=== PATIENT | female | born 1970 | race Caucasian/White ===

== ENCOUNTER 2020-03-15 08:02 | Outpatient (CLI) | payer BC, SELFPAY ==
--- NOTE | 2020-03-15 08:00 | MR_ITS ---
WS: [id number] MRI CERVICAL SPINE NONCONTRAST TECHNIQUE: Sagittal T1, T2 and STIR imaging. Axial T2, gradient, and fiesta imaging. CLINICAL INFORMATION: M48.02 Spinal stenosis, cervical region COMPARISON: June 23, 2018 FINDINGS: Normal cervical alignment. No high-grade central canal stenosis. Cord signal is normal. Small disc pr otrusions at C4-C5 C5-C6 and C6-C7. C2-C3: Normal. C3-C4: Mild osteophytic ridging. Mild left and no significant right foraminal narrowing. Spinal canal is patent. C4-C5: Mild disc osteophyte complex with endplate ridging. Mild left and no significant right foramin al narrowing. Mild central canal stenosis. Mild facet arthropathy. C5-C6: Tiny central disc osteophyte protrusion. Mild central canal stenosis. Mild facet arthropathy. Moderate left and mild right bony foraminal narrowing. Mild facet arthropathy. C6-C7: Central left pericentral disc osteophyte protrusion. Slight contact of the cervical cord. Mild central canal stenosis. Mild bilateral foraminal narrowing left greater than right. C7-T1: Normal. Visualized brain stem structures: Normal. Prevertebral soft tissues: Normal. Small retention cyst sphenoid sinus. MR/MR cervical spin wo con* [id number] IMPRESSION: 1. Normal cervical alignment. No high-grade central canal narrowing. Cord sign al is normal. 2. Mild central canal stenosis C4-C6 similar in appearance to 2019. 3. Central left pericentral disc osteophyte protrusion C6-C7 with mild central canal stenosis slightly progressed since 2019. Slight contact of the left vent ral cervical cord. Mild left foraminal narrowing at this level. 4. Small left pericentral disc osteophyte complex C4-5 with mild to moderate l eft foraminal narrowing. 5. Tiny central protrusion at C5-C6 with mild central canal stenosis and moder ate left bony foraminal narrowing.
== END 2020-03-15 08:03 | disposition home or self-care (01) ==
LOC: RADSHAW 08:05
PROVIDERS: Visit Provider Orthopaedic Surgery
DX: M48.02 Spinal stenosis, cervical region (principal); G99.2 Myelopathy in diseases classified elsewhere; M25.78 Osteophyte, vertebrae; M50.222 Other cervical disc displacement at C5-C6 level
CPT/HCPCS: 72141

== ENCOUNTER → 2020-03-16 13:50 | Outpatient (BNVA) | payer BC, SELFPAY | PROVIDERS: Visit Provider Orthopaedic Surgery | DX: Z11.59 Encounter for screening for other viral diseases (principal); M48.02 Spinal stenosis, cervical region; G99.2 Myelopathy in diseases classified elsewhere | CPT/HCPCS: 87635 ==

== ENCOUNTER → 2020-03-21 14:12 | Outpatient (BNVA) | payer BC, SELFPAY | PROVIDERS: Visit Provider Orthopaedic Surgery | DX: Z20.828 Contact with and (suspected) exposure to other viral communicable diseases (principal) | CPT/HCPCS: 87635 ==

== ENCOUNTER 2020-03-24 15:30 | Inpatient (IN) | payer BC, SELFPAY ==
[2020-03-16 11:48] VITALS: BMI 22.3
--- NOTE | 2020-03-16 12:06 | ANES.PREANE2 ---
Pre-Anesthetic Assessment Pre-Anesthetic Assessment: Height/Weight: Height 1.55 m Weight 53.524 kg Preop Diagnosis: cervical stenosis Proposed Procedure: Operation Date: 03/21/20 14:30 Proposed Procedures p Anterior Cervical Discectomy&Fusion C5-C6, C6-C7 12835 M48.02 G99.2(Not Applicable) - Juliano Dickinson DO Familial anesthetic complications: NOne Social: Social History: Tobacco Exam: Pre-Anes Outpt Exam: alert, oriented x 3, clear to auscultation bilaterally and regular rate & rhythm Airway: Cervical ROM: Other (limited extension d/t pain) MP: 1 Dentition: Other (teeth pulled) CV/HEM: Comments: macrocytosis - takes folate and b12 Anesthetic Plan: ASA status: 1 Anesthesia: General Risk of > 500 ml blood loss (7ml/kg in children): No PFSH Anesthesia PFSH: Social History Smoking and tobacco status: current every day smoker cigarettes Packs smoked per day: 0.05 Second hand smoke exposure: Yes Alcohol intake: current Alcohol intake frequency: holidays/special occasions only Data Anesthesia Cardiac Studies: No Data to Display
[2020-03-24] VITALS (16 sets, daily range): BP systolic 93–121; BP diastolic 58–81; PULSE 73–99; RESP 10–20; TEMP 36.1–36.9; O2SAT 92–100
--- NOTE | 2020-03-24 | XR_ITS ---
WS: [id number] Cervical spine, AP and lateral views C-arm fluoroscopy in the OR, 03/24/2020 Clinical Data: ACDF Comparison: None. Findings: There is an anterior cervical disc fusion of C5-C7. Artificial disks through C7. Are placed at C5-C6 and C6-C7. XR/XR cervical spine 3V* [id number] Impression: Anterior cervical disc fusion C5-C7.
--- NOTE | 2020-03-24 | SCC_ITS ---
Procedure Done: 1. Radical anterior cervical discectomy C5-6 with removal of posterior osteophytes foraminotomies and decompression of spinal canal. 2. Radical anterior cervical discectomy C6-7 with removal of posterior osteophytes foraminotomies and decompression of spinal canal 3. is anterior cervical fusion C5-6. 4. anterior cervical fusion C6-7. 5. utilization of allograft for purposes of spinal fusion. 6. is application of anterior cervical locking plate C5-C7. 30.1 seconds of fluoroscopic guidance, for a cumulative dose of 3.98 mGy, was provided to Dr. Dickinson by the radiology department. C-arm images of the cervical spine were saved for the patient's permanent record. HUGOD
[2020-03-24] MEDS: gabapentin 300 mg Capsule PO (08:25)
[2020-03-24] MEDS: sodium chloride 0.9% 1,000 ML 30 ML IV (08:25)
--- NOTE | 2020-03-24 08:43 | W.PM.OPSUD ---
Surgery/Procedure H&P Update DATE OF PROCEDURE: March 24, 2020 DATE H&P PERFORMED: 03/03/20 H&P UPDATE INFORMATION: I have reviewed H&P completed within last 30 days, I have examined patient prior to procedure and No changes to prior documentation PREOP DIAGNOSIS: cervical stenosis PLANNED PROCEDURE: Operation Date: 03/24/20 09:00 Proposed Procedures p Anterior Cervical Discectomy&Fusion C5-C6, C6-C7 08072 05685 [id number] 05572 55746 56318 M48.02 G99.2(Not Applicable) - Juliano Dickinson DO
--- NOTE | 2020-03-24 08:43 | W.PM.OPSUD ---
Surgery/Procedure H&P Update DATE OF PROCEDURE: March 24, 2020 DATE H&P PERFORMED: 03/03/20 H&P UPDATE INFORMATION: I have reviewed H&P completed within last 30 days, I have examined patient prior to procedure and No changes to prior documentation PREOP DIAGNOSIS: cervical stenosis PLANNED PROCEDURE: Operation Date: 03/24/20 09:00 Proposed Procedures p Anterior Cervical Discectomy&Fusion C5-C6, C6-C7 60986 72183 24991 34050 93753 01811 M48.02 G99.2(Not Applicable) - Juliano Dickinson DO
--- NOTE | 2020-03-24 08:44 | P.ANESASSM_ITS ---
Pre-Anesthetic Assessment Pre-Anesthetic Assessment: Height/Weight: Height 1.55 m Weight 53.524 kg Temp Pulse Resp BP Pulse Ox 98.4 F 99 18 116/81 98 03/24/20 07:54 03/24/20 07:54 03/24/20 07:54 03/24/20 07:54 03/24/20 07:54 Preop Diagnosis: cervical stenosis Proposed Procedure: Operation Date: 03/24/20 09:00 Proposed Procedures p Anterior Cervical Discectomy&Fusion C5-C6, C6-C7 66291 63683 75961 28636 08764 15503 M48.02 G99.2(Not Applicable) - Juliano Dickinson DO Familial anesthetic complications: None Was Beta Ivy taken within 24 hours: N/A Last intake: Intake Last Liquid Date 03/23/20 Last Liquid Time 23:00 Last Solid Date 03/23/20 Last Solid Time 22:00 Social: Social History: Tobacco and No alcohol Exam: Pre-Anes Outpt Exam: alert, oriented x 3, clear to auscultation bilaterally and regular rate & rhythm Airway: Cervical ROM: WNL MP: 2 Dentition: Full Anesthetic Plan: ASA status: 1 Anesthesia: General Risk of > 500 ml blo od loss (7ml/kg in children): No Meds/Allergies Current Medications: Current Medications Generic Name Dose Route Start Last Admin Trade Name Freq PRN Reason Stop Dose Admin Sodium Chloride 1,000 mls @ 30 ml s/hr 03/24/20 08:00 03/24/20 08:25 Sodium Chloride 0.9% IV 03/25/20 07:59 30 mls/hr .Q24H ALISA Administration PFSH Anesthesia PFSH: Social History Smoking and tobacco status: current every day smoker cigarettes Packs smoked per day: 0.05 Second hand smoke exposure: Yes Alcohol intake: current Alcohol intake frequency: holidays/special occasions only Data Anesthesia Cardiac Studies: No Data to Display
--- NOTE | 2020-03-24 10:11 | SUR.OPER ---
Family Notified Of Patient's Status Via Phone.
--- NOTE | 2020-03-24 11:55 | SUR.PHASEI ---
1150 PATIENT TO PACU FROM OR. RR EVEN AND UNLABORED. SPO2 100% ON SIMPLE MASK AT 8L. NECK BRACE IN PLACE.
[2020-03-24] MEDS: fentaNYL 50 mcg/mL INJ 2mL IVP ×2 (12:12→12:21)
--- NOTE | 2020-03-24 12:14 | P.OP_ITS ---
Operative Report Date of procedure: March 24, 2020 Pre-op Diagnosis: cervical stenosis with radiculopathy Post-op diagnosis: same Procedure Done: 1. Radical anterior cervical discectomy C5-6 with removal of posterior osteophytes foraminotomies and decompression of spinal canal. 2. Radical anterior cervical discectomy C6-7 with removal of posterior osteophytes foraminotomies and decompression of spinal canal 3. is anterior cervical fusion C5-6. 4. anterior cervical fusion C6-7. 5. utilization of allograft for purposes of spinal fusion. 6. is application of anterior cervical locking plate C5-C7. Implants: Marilee Anesthesia: General Estimated blood loss (mL): 25 Condition: stable Disposition: PACU Procedure: Patient was brought to the operative suite placed in the supine position all areas of impingement were well-padded patient had neuro monitoring attached of note no issues came up with neuro monitoring patient had no deficits. Patient was then prepped and draped in normal sterile fashion. Skin surgeon made over the C5-6 level confirmed under C arm guidance. These platysma's was split retractors placed and blunt dissection was made down to the anterior spine the interlocked internal ligament was identified retractors placed spinal needle was used to confirm the C5-6 disc is good from using the C arm retractors were then placed [place] pins were placed at C5 and C6. This was distracted. The discectomy was performed using curettes [place] taken all her down posterior longitudinal ligament was taken down dura had good texture good pulse the foramen were opened up bilaterally using the #2 [place] rongeur osteophytes were taken down along with the uncinate process bilaterally curette was able to pass freely through the foramen bilaterally then a [place] cage was placed and packed with osteoamp size 7 cage was placed. Next Attention was brought to the C6-7 level pin was removed from C5 and placed in the C7. C6-7 to space was distracted discectomy performed using curette and pituitary and [place] rongeurs again taken back to the posterior longitudinal ligament the foramen and uncinate process were opened up with the nerves were felt to be completely free dura good repair the again a size 7 cage from [place]ilee was inserted packed with osteoamp and then a [place] cage was placed anteriorly 2 screws were placed at each level from C5-C6 and C7 AP lateral fluoroscopy ensured that the plate and screws were preposition cages were improved position wounds were irrigated and platysmas closed with 2-0 Vicryl skin with 2-0 Vicryl and Monocryl suture sterile dressings were applied and patient was transferred to the PACU in stable condition attending physicians NADEEM and darcy [facility] assist she was placed in a soft collar and transferred to the PACU in stable condition
[2020-03-24] MEDS: LORazepam 2 mg/mL INJ 1 mL IVP (12:21)
--- NOTE | 2020-03-24 12:41 | SUR.PHASEI ---
1237 PATIENT TO OPS. NO DISTRESS. SOFT CERVICAL COLLAR IN PLACE.
--- NOTE | 2020-03-24 12:43 | PC.NURSE ---
1238- Received pt from PACU very drowsy. O2 sats 86, so applied O2 at 3L per NC, and sats up to 93. other VVS. Soft neck brace in place.
--- NOTE | 2020-03-24 15:47 | PC.NURSE ---
[facility] FROM [facility] IS CANCELING HYDROCODONE RX AND ORDERING TRAMADOL INSTEAD.
--- NOTE | 2020-03-24 20:14 | ANE.PACU2 ---
Inpatient post-anesthesia follow up: Airway intact: Yes Vital signs: Temperature 97.4 F Pulse Rate 99 Respiratory Rate 16 Blood Pressure 121/75 Pulse Oximetry 94 Oxygen Delivery Me thod Room Air Oxygen Flow Rate 2 Fraction of Inspir ed Oxygen Hydration adequate: Yes Nausea and vomiting: No Pain level: 4 Mental status: Baseline
== END 2020-03-24 15:40 | disposition home or self-care (01) | DRG 472 ==
LOC: MEDSURG 03-25 07:20
PROVIDERS: Admitting Provider Orthopaedic Surgery; Visit Provider Orthopaedic Surgery
PROC: 0RB30ZZ Excision of Cervical Vertebral Disc, Open Approach (ICD-10-PCS; CPT 22551; principal; 2020-03-24 09:00)
DX: M48.02 Spinal stenosis, cervical region (principal); G95.89 Other specified diseases of spinal cord; M54.12 Radiculopathy, cervical region; F17.210 Nicotine dependence, cigarettes, uncomplicated
CPT/HCPCS: 12345; 72040; 76000; 96365; C1713; C9359; J0330; J0690; J1100; J2060; J2405; J2704; J3010; J3490; J7030; L0172

== ENCOUNTER → 2020-04-20 09:43 | Outpatient (BNVA) | payer BC, SELFPAY | PROVIDERS: Visit Provider Podiatrist Foot & Ankle Surgery | DX: M79.671 Pain in right foot (principal); M79.672 Pain in left foot | CPT/HCPCS: 73630 ==

== ENCOUNTER → 2020-05-03 08:33 | Outpatient (BNVA) | payer BC, SELFPAY | PROVIDERS: Visit Provider Orthopaedic Surgery | DX: M48.02 Spinal stenosis, cervical region (principal); G99.2 Myelopathy in diseases classified elsewhere | CPT/HCPCS: 72040 ==

== ENCOUNTER → 2020-06-14 11:59 | Outpatient (BNVA) | payer BC, SELFPAY | PROVIDERS: Visit Provider Orthopaedic Surgery | DX: M48.02 Spinal stenosis, cervical region (principal); G99.2 Myelopathy in diseases classified elsewhere | CPT/HCPCS: 72050 ==

== ENCOUNTER → 2020-08-23 11:44 | Outpatient (BNVA) | payer BC, SELFPAY | PROVIDERS: Visit Provider Orthopaedic Surgery | DX: M48.02 Spinal stenosis, cervical region (principal) | CPT/HCPCS: 72050 ==